=== PATIENT | male | born 1985 | race Caucasian/White ===

== ENCOUNTER 2016-11-28 00:21 | Emergency (ER) | payer OTHER ==
[~2016-11-28] VITALS: Ht 177.8 cm; Wt 83.9 kg
--- NOTE | 2016-11-28 01:25 | ED SKIN/ALLERGY COMPLAINT ---
History of Present Illness General Chief Complaint: Skin Rash/ Abcess Stated Complaint: ABCESS ON BUTTOCKS Source: patient Exam Limitations: no limitations Vital Signs & Intake/Output Vital Signs & Intake/Output Vital Signs Date Time Temp Pulse Resp B/P Pulse O2 O2 Flow FiO2 Ox Delivery Rate 11/28 0358 98.6 72 18 113/77 100 Room Air 11/28 0119 100 Room Air 11/28 011 98.1 118 20 158/103 100 Room Air Allergies Coded Allergies: No Known Allergies (11/28/16) Reconcile Medications Cephalexin (Keflex) 500 MG CAPSULE 1 CAP PO TID INFECTION Triage Note: PT FROM HOME C/O CYST ON BUTTOCKS. PT STATES HE NOTICED IT 2 WEEKS AGO? AND WENT TO PCP, PCP STATED IT WAS NOT READY TO BE LANCED. PT TO 2, AWAITING PROVIDER EVAL. Triage Nurses Notes Reviewed? yes Onset: Gradual Duration: week(s): (1) Timing: recent history Severity: severe Location: left perianal Possible Factors: STARTED WITH A PIMPLE ON LEFT BUTTOCK No Modifying Factors: none Associated Symptoms: swelling/mass/lumps HPI: This is a 30-year-old male presents to the ER with chief complaint of a one-week history of abscess in between his buttocks. Patient saw his doctor in Tuesday who put him on Bactrim. Her last few days the pain is gradually gotten much worse. Patient planes of subjective fever, chills and right ears at home. He states that the wound has started to drain somewhat as he is a little bit of discharge on his bottom. Patient has exquisite pain with sitting down and feeling better with lying down on the stretcher. No history of previous similar symptoms. Patient denies any history of previous abscesses. (AZAM BORRERO,COLLEEN) Past History Travel History Traveled to [place] past 21 day No Medical History Any Pertinent Medical History? see below for history Psychiatric: alcohol dependence, ADHD Surgical History Surgical History: non-contributory Psychosocial History What is your primary language Estonian Tobacco Use: Current Not Daily Daily Tobacco Use Amount/Type: =< 4 Cigarettes daily ETOH Use: denies use Illicit Drug Use: denies illicit drug use Family History Hx Contributory? No (COLLEEN NASCIMENTO MD) Review of Systems Review of Systems Constitutional: Reports: chills. Denies: fever. EENTM: Reports: no symptoms. Respiratory: Denies: cough, short of breath. Cardiovascular: Denies: chest pain. GI: Denies: abdominal pain. Genitourinary: Reports: no symptoms. Musculoskeletal: Reports: no symptoms. Skin: Reports: erythema, lumps. Neurological/Psychological: Reports: no symptoms. Hematologic/Endocrine: Denies: bruising, bleeding, polyuria, polydipsia. Immunologic/Allergic: Denies: splenectomy. All Other Systems: Reviewed and Negative (COLLEEN NASCIMENTO MD) Physical Exam Physical Exam General Appearance: well developed/nourished, mild distress Head: atraumatic Eyes: Bilateral: PERRL, EOMI. Ears, Nose, Throat: normal pharynx, normal ENT inspection, hearing grossly normal Neck: normal inspection, supple Respiratory: normal breath sounds Cardiovascular: regular rate/rhythm Peripheral Pulses: 2+ radial (R), 2+ radial (L) Gastrointestinal: soft, non-tender Extremities: normal inspection, normal range of motion, no edema Neurologic/Psych: awake, alert, oriented x 3, normal mood/affect Skin: intact, normal color, warm/dry Skin Problem Location: LEFT PERIANAL Skin Problem Character: abcess Lymphatic: no anterior cervical delvis (AZAM BORRERO,COLLEEN) Progress Differential Diagnosis: abscess/cellulitis Plan of Care: Orders Procedure Date/time Status TRUNK AREA CULTURE 11/28 025 Active BLOOD CULTURE 11/28 127 Active COMPREHENSIVE METABOLIC PANEL 11/28 127 Complete CBC WITHOUT DIFFERENTIAL 11/28 127 Complete Laboratory Tests 11/28/16 0210: Anion Gap 9, Estimated GFR > 60, BUN/Creatinine Ratio 8.2, Glucose 93, Calcium 8.9, Total Bilirubin 0.5, AST 20, ALT 39, Alkaline Phosphatase 87, Total Protein 6.7, Albumin 4.0, Globulin 2.7, Albumin/Globulin Ratio 1.5, CBC w Diff NO MAN DIFF REQ, RBC 4.84, MCV 87.8, MCH 29.8, RDW 12.3, MPV 8.6, Gran % 81.7 H, Lymphocytes % 9.0 L, Monocytes % 6.4, Eosinophils % 2.7, Basophils % 0.2, Absolute Granulocytes 9.3 H, Absolute Lymphocytes 1.0 L, Absolute Monocytes 0.7 H, Absolute Eosinophils 0.3, Absolute Basophils 0, PUBS MCHC 33.9 Microbiology 11/28 0300 TRUNK: Culture & Sensitivity - RECD 11/28 0300 TRUNK: Gram Stain - RECD 11/28 0210 BLOOD: Blood Culture - RECD 11/28 0155 BLOOD: Blood Culture - RECD IV TORADOL, VALIUM, SALINE ORDERED IV UNASYN ABSCESS I+D IV TYLENOL ADMINISTERED (COLLEEN NASCIMENTO MD) Comments: Updated with results of MRSA. To return tomorrow for wound assessment. (ALLISON BORRERO,VIKTORIA) Departure Departure Time of Disposition: 0 Disposition: HOME OR SELF CARE Condition: Stable Clinical Impression Primary Impression: Perianal abscess Referrals: CARLINE BORRERO,AGUSTINA Holly Additional Instructions: Continue the Bactrim. Take Keflex as directed. Take ibuprofen as needed. Return in 2 days for wound check either to the emergency department or with the surgeon listed. Departure Forms: Customer Survey General Discharge Information Prescriptions: Current Visit Scripts Cephalexin (Keflex) 1 CAP PO TID #30 CAP (COLLEEN NASCIMENTO MD) Departure Comments 11/30/16 3:15 PM Culture noted. The patient was called however, he is actually on Bactrim. No change in the plan of care. (ISABEL FRANKLIN DO) Procedures Incision and Drainage Site: LEFT PERIANAL Blade Size: 10 I & D Procedure: Yes: betadine prep, sterile drapes applied, sterile dressing applied, wick placed. Progress: 10 ML LIDOCAINE USED FOR LOCAL LARGE AMOUNT OF BLOODY/PURULENT DRAINAGE OBTAINED, APPROX 40-50 CC PATIENT TOLERATED PROCEDURE WELL (COLLEEN NASCIMENTO MD)
[2016-11-28 02:19] LABS: ABSOLUTE BASOPHIL COUNT 0 /CUMM (0.0-0.2); ABSOLUTE EOSINOPHIL COUNT 0.3 /CUMM (0.0-0.7); ABSOLUTE GRANULOCYTE CT 9.3 /CUMM (1.4-6.5); ABSOLUTE MONOCYTE COUNT 0.7 /CUMM (0.10-0.60); BASOPHIL % 0.2 % (0.0-2.0); EOSINOPHIL % 2.7 % (0-5); GRANULOCYTE % 81.7 % (42.2-75.2); HEMATOCRIT 42.5 % (42-52); MEAN CORPUSCULAR HGB 29.8 PG (27.0-31.0); MEAN CORPUSCULAR HGB CONC 33.9 G/DL (33.0-37.0); MEAN CORPUSCULAR VOLUME 87.8 FL (80.0-94.0); MEAN PLATELET VOLUME 8.6 FL (7.4-10.4); PLATELET COUNT 284 /CUMM (130-400); RBC DISTRIBUTION WIDTH 12.3 % (11.5-14.5); RED BLOOD CELL CT 4.84 /CUMM (4.70-6.10); WHITE BLOOD CELL COUNT 11.4 /CUMM (4.8-10.8)
[2016-11-28 03:58] VITALS: BP 113/77
[2016-11-28] MEDS ORDERED: KEFLEX500 M1 PO (03:59)
== END 2016-11-28 04:09 ==
LOC: ERH 00:21
PROVIDERS: Emergency Medicine
DX: K61.0 Anal abscess (principal)
CPT/HCPCS: 87184; 87040; 87070; 87147; 96365; 96366; 96375; J0131; J1885; J3360